=== PATIENT | female | born 1990 | race Two or more races ===

== ENCOUNTER 2025-06-17 14:47 | Emergency (ER) | payer MEDICAID, SELFPAY ==
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
--- NOTE | 2025-06-17 16:36 | PC.NURSE ---
[facility] WAS CONTACTED ON PATIENT ARRIVAL AND DISPATCH STATED THEY WOULD SEND OFFICER WHEN AVAILABLE.
[2025-06-17 16:55] VITALS: BP 144/98; PULSE 82; RESP 18; TEMP 37.3; O2SAT 97
== END 2025-06-17 17:00 | disposition home or self-care (01) ==
PROVIDERS: Emergency Provider Family Medicine; PCP Physician Assistant
DX: S16.1XXA Strain of muscle, fascia and tendon at neck level, initial encounter (principal); V89.2XXA Person injured in unspecified motor-vehicle accident, traffic, initial encounter; Y92.410 Unspecified street and highway as the place of occurrence of the external cause
CPT/HCPCS: 99282